=== PATIENT | male | born 1955 | race American Indian/Alaskan Native ===

== ENCOUNTER 2019-05-21 08:19 | Day surgery (SDC) | payer MEDICARE ==
[~2019-05-21 08:19] MED LIST: ANTIBIOTIC OINT TP ONE; TRIPLE ANTIBIOTIC TP ONE
--- NOTE | 2019-05-21 09:12 | Anesthesia Day of Surgery ---
Anesthesia Day of Surgery - Day of Surgery Patient Examined: Yes Patient H&P Reviewed: Yes Patient is NPO: Yes Beta Blockers: Yes Cardiac Clearance: Yes
--- NOTE | 2019-05-21 09:15 | Anesthesia Consultation ---
Anesthesia Consult and Med Hx Date of service: 05/21/19 - Airway Anesthetic Teeth Evaluation: Good ROM Head & Neck: Adequate Mental/Hyoid Distance: Adequate Mallampati Class: Class II Intubation Access Assessment: Good - Pre-Operative Health Status ASA Pre-Surgery Classification: ASA3 Proposed Anesthetic Plan: General - Pulmonary Hx Smoking: Yes (STOPPED X 40 YRS) Hx Sleep Apnea: No (ANDREINA PRE SCREEN HIGH RISK) - Cardiovascular System Hx Hypertension: Yes (X 10 YRS. Can climb two flights of stairs) Hx Angina: No (CHF-2010) Hx Cardia Arrhythmia: Yes (A-Fib) Hx Valvular Heart Disease: Yes (MVR 2010) - Central Nervous System Hx Back Pain: Yes - Gastrointestinal Hx Gastroesophageal Reflux Disease: No - Hematic Hx Sickle Cell Disease: No - Other Systems Hx Cancer: No
[2019-05-21] MEDS ORDERED: ZOFRAN IV PRN (09:16)
[2019-05-21] MEDS ORDERED: LACTATED RINGERS 1,000 ML IV SCH (10:00)
[2019-05-21 10:33] LABS: INR > 17.67 (0.87-1.13); Partial Thromboplastin Time > 240.0 Sec. (24.2-36.6)
[2019-05-21] MEDS ORDERED: TRIPLE ANTIBIOTIC TP ONE (11:13)
[2019-05-21] MEDS ORDERED: GENTAMICIN IV SCH (11:15)
[2019-05-21] MEDS ORDERED: SUBLIMAZE ONE (11:23)
[2019-05-21] MEDS ORDERED: VERSED ONE (11:23)
[2019-05-21] MEDS ORDERED: DIPRIVAN 10 MG/ML IV ONE (11:24)
[2019-05-21] MEDS ORDERED: XYLOCAINE MPF 2% ONE (11:25)
[2019-05-21 11:50] LABS: INR 1.1 (0.87-1.13)
[2019-05-21 11:52] LABS: Partial Thromboplastin Time 28.9 Sec. (24.2-36.6)
[2019-05-21] MEDS ORDERED: GENTAMICIN/NS 120MG/100ML 120 MG/100 ML BAG IV NR (12:00)
[2019-05-21] MEDS ORDERED: LEVAQUIN 500MG/100ML 500 MG/100 ML BAG IV NR (12:00)
[2019-05-21] MEDS ORDERED: WATER FOR IRRIG STERILE IR ONE (12:47)
[2019-05-21] MEDS ORDERED: LASIX ONE (13:11)
--- NOTE | 2019-05-21 13:50 | Operative Report ---
PREOPERATIVE DIAGNOSES: Severe phimosis, the inability to see the glans, elevated PSA and mild obstructive voiding symptoms. POSTOPERATIVE DIAGNOSES: Severe phimosis, the inability to see the glans, elevated PSA and mild obstructive voiding symptoms. PROCEDURE: Cystoscopy with the flexible scope, circumcision dorsal slit and transrectal biopsies of the prostate ultrasound guidance. SURGEON: Dr. Epps. ANESTHESIA: General. FINDINGS: This is a gentleman who presents with severe phimosis, elevated PSA. All risks and implications discussed. He now presents for treatment. DESCRIPTION OF PROCEDURE: The patient was brought to the operating room and placed on the operating table. Following induction of anesthesia, he was in the cystoscopy suite, prepped and draped in usual sterile fashion. Could not see the meatus and dorsal slit was carried out. Finally, we saw the meatus, which was covered with smegma. This was cleaned with Betadine and a ventral slit was made and the circumcision was completed. Hemostasis was obtained with 3-0 Vicryl ties. Once the hemostasis was good, the area was cauterized and that needed to be cauterized and tied and that needed to be tied. Sutures were placed at 12, 3, 6, and 9 o'clock positions. Each quadrant was bisected with 3-0 and 4-0 chromic. Minimal blood loss less than 10 mL. At this point, flexible cystoscopy showed trilobar hypertrophy with no bladder lesions, 2+ trabeculation. The ultrasound was then placed and 11 biopsies, 5 on the patient's right and 6 on the left were carried out. The patient tolerated the procedure well. No significant complication, no significant bleeding, brought to recovery in stable condition. JOB# [id number] PARISA/LUIS
[2019-05-21] MEDS: SUBLIMAZE IV PRN ×2 (14:00→14:30)
--- NOTE | 2019-05-21 14:40 | Post Operative Note ---
Date of procedure: 05/21/19 Pre-op diagnosis: inc psa severe phimosis Post-op diagnosis: same Findings: meatal stenosis Procedure: cysto circ pus bx Anesthesia: GETA Surgeon: ADAN MONACO Estimated blood loss: minimal Pathology: list (foreskin prostate) Specimen disposition: to lab Condition: stable Disposition: PACU
--- NOTE | 2019-05-21 14:42 | Discharge Summary ---
Short Stay Discharge Plan Activity: other (no straining ) Weight Bearing Status: Full Weight Bearing Diet: low fat, low cholesterol, low salt Wound: open to air Special Instructions: other (ice today ) Durable Medical Equipment Needed Upon Discharge: other (home with mason ) Follow up with: SHEILA HEATON JR, MD [Primary Care Provider] - 7 Days ADAN MONACO MD [Staff Physician] - 7 Days Forms: Outpatient Surgery DC Inst.
--- NOTE | 2019-05-21 14:46 | Ultrasound Report ---
ULTRASOUND TRANSRECTAL HISTORY: Elevated PSA, guidance for prostate biopsy. FINDINGS: Ultrasound guidance was provided by radiology during prostate biopsy. 8 endorectal ultrasou nd images of the prostate gland are presented. Prostate volume measures 64.8 cc. Ultrasound-guided pr ostate biopsy was performed by the urologist. IMPRESSION: Successful ultrasound-guided prostate biopsy. Signer Name: Andi Rodgers Jr, MD Signed: 05/21/2019 2:42 PM Workstation Name: [id number]
[2019-05-21 15:25] VITALS: BP 134/71
--- NOTE | 2019-05-21 18:36 | Post Anesthesia Evaluation ---
- Post Anesthesia Evaluation Patient Participated: Yes Airway Patent: Yes Stable Respiratory Function: Yes Nausea/Vomiting: No Temp > 96.8F: Yes Pain Manageable: Yes Adequeate Hydration: Yes Anesthesia Complications: No Block Receding Appropriately: Not Applicable Patient on Ventilator: No
== END 2019-05-21 08:20 | disposition home or self-care (01) ==
LOC: OR 08:19
PROVIDERS: ATTEND Urology
DX: N47.1 Phimosis (principal); N40.0 Benign prostatic hyperplasia without lower urinary tract symptoms; I42.9 Cardiomyopathy, unspecified; I20.9 Angina pectoris, unspecified; I11.0 Hypertensive heart disease with heart failure; I50.9 Heart failure, unspecified; I48.91 Unspecified atrial fibrillation; Z98.890 Other specified postprocedural states; Z87.891 Personal history of nicotine dependence; Z88.5 Allergy status to narcotic agent; Z88.0 Allergy status to penicillin; Z79.899 Other long term (current) drug therapy; Z95.1 Presence of aortocoronary bypass graft
CPT/HCPCS: 36415; 52000; 54161; 55700; 76872; 76942; 82962; 84132; 85610; 85730; 88304; 88305; 88342; A4217; J1580; J1940; J1956; J2704; J3010; J7120; A6250; J2250